=== PATIENT | female | born 1980 | race African-American/Black ===

== ENCOUNTER 2016-11-30 14:21 | Emergency (ER) | payer SELFPAY ==
[~2016-11-30] VITALS: Ht 165.1 cm; Wt 85.0 kg
[2016-11-30 14:25] VITALS: BP 117/71
[2016-11-30] MEDS ORDERED: ALBUTEROL (0.083%) 2.5MG/3ML NEB HHN STA (14:45)
[2016-11-30] MEDS ORDERED: KETOROLAC 30MG/ML VIAL IV STA (14:45)
== END 2016-11-30 17:04 | disposition home or self-care (01) ==
LOC: ER 15:53
DX: J20.9 Acute bronchitis, unspecified (principal); Z91.040 Latex allergy status; Z91.048 Other nonmedicinal substance allergy status
CPT/HCPCS: 71010; 81025; 93005; 99284